=== PATIENT | male | born 1980 | race Caucasian/White ===

== ENCOUNTER 2019-03-06 05:23 | Emergency (ER) | payer MEDICAID, OTHER ==
[~2019-03-06] VITALS: Ht 185.4 cm; Wt 90.7 kg
[2019-03-06] MEDS ORDERED: pantoprazole 40 MG vial IV ONE (05:35)
[2019-03-06] MEDS ORDERED: ondansetron/PF 4mg/2ml inj IV ONE ×2 (05:35→07:25)
[2019-03-06] MEDS ORDERED: famotidine/PF 10 mg/ml inj IV ONE (05:35)
[2019-03-06] MEDS ORDERED: normal saline 1000ML IV soln IVB ONE (05:35)
[2019-03-06 06:18] LABS: EOSINOPHILS % (AUTO) 0.9 % (0-6); HEMATOCRIT 34.7 % (42.0-52.0); HEMOGLOBIN 12.3 g/dl (14.0-17.9); LYMPHOCYTES # (AUTO) 1.6 X10'3 (1.1-4.8); LYMPHOCYTES % (AUTO) 36.3 % (21-51); MEAN CORPUSCULAR HEMOGLOBIN 35.9 PG (27.0-31.0); MEAN CORPUSCULAR HGB CONC 35.4 g/dL (33.0-36.5); MEAN CORPUSCULAR VOLUME 101.5 FL (78-98); MEAN PLATELET VOLUME 8.8 FL (7.4-10.4); MONOCYTES # (AUTO) 0.4 X10'3 (0-0.9); MONOCYTES % (AUTO) 8.7 % (2-12); NEUTROPHILS # (AUTO) 2.4 X10'3 (1.8-7.7); NEUTROPHILS % (AUTO) 53.1 % (42-75); PLATELET COUNT 109 X10'3 (140-440); RED BLOOD COUNT 3.42 X10'6 (4.70-6.10); RED CELL DISTRIBUTION WIDTH 14.6 % (11.5-14.5); WHITE BLOOD COUNT 4.5 X10'3 (4.5-11.0)
[2019-03-06 06:30] LABS: ANISOCYTOSIS 1+; PLATELET ESTIMATE DECREASED; STOMATOCYTES 2+
[2019-03-06 06:38] LABS: ALANINE AMINOTRANSFERASE 231 U/L (12-78); ALBUMIN 2.8 G/DL (3.4-5.0); ALBUMIN/GLOBULIN RATIO 0.8 (1.1-1.5); ALKALINE PHOSPHATASE 198 IU/L (46-116); ASPARTATE AMINO TRANSFERASE 313 U/L (10-37); BLOOD UREA NITROGEN 21 MG/DL (7-18); BUN/CREATININE RATIO 17.4 (5.4-32.0); CALCIUM 8.6 MG/DL (8.5-10.1); CHLORIDE 99 MMOL/L (99-107); CREATININE 1.21 MG/DL (0.60-1.10); GLUCOSE 120 MG/DL (70-104); LIPASE 156 U/L (73-393); SODIUM 138 MMOL/L (135-145); TOTAL PROTEIN 6.3 G/DL (6.4-8.2); eGFR 67 ML/MIN
[2019-03-06 06:40] LABS: ANION GAP 18 (8-16); POTASSIUM 4.2 MMOL/L (3.5-5.1); TOTAL CARBON DIOXIDE 20.7 MMOL/L (24-32)
--- NOTE | 2019-03-06 07:25 | NUR ---
PT REPORTS STILL FEELING NAUSEATED, PT GIVEN WARM BLANKET, DR HOLGUIN INFORMED, RECEIVED VERBAL ORDER FR 4 MG IV ZOFRAN ONCE NOW
[2019-03-06 08:05] LABS: INR 1.2 INR; PROTHROMBIN TIME 14.7 SECONDS (9-12)
[2019-03-06] MEDS ORDERED: proCHLORperazine 10 MG/2 ml inj IV ONE (08:10)
--- NOTE | 2019-03-06 08:37 | NUR ---
LABS DRAWN AGAIN PER ORDERS, PT AMBULATORY TO BATHROOM WITH STEADY GAIT, MEDICATED PT WITH COMPAZINE IV PER ORDERS PRIOR TO GOING TO BATHROOM AND PROVIDED ICECHIPS TO PT
[2019-03-06 08:57] LABS: HEMATOCRIT 38.1 % (42.0-52.0); HEMOGLOBIN 13.3 g/dl (14.0-17.9); MEAN CORPUSCULAR HEMOGLOBIN 35.7 PG (27.0-31.0); MEAN CORPUSCULAR HGB CONC 34.8 g/dL (33.0-36.5); MEAN CORPUSCULAR VOLUME 102.4 FL (78-98); MEAN PLATELET VOLUME 9.3 FL (7.4-10.4); PLATELET COUNT 140 X10'3 (140-440); RED BLOOD COUNT 3.72 X10'6 (4.70-6.10); RED CELL DISTRIBUTION WIDTH 14.4 % (11.5-14.5)
[2019-03-06 08:58] LABS: BASOPHILS % (AUTO) 0.5 % (0-1); EOSINOPHILS % (AUTO) 0.7 % (0-6); LYMPHOCYTES # (AUTO) 2.2 X10'3 (1.1-4.8); LYMPHOCYTES % (AUTO) 43.3 % (21-51); MONOCYTES # (AUTO) 0.6 X10'3 (0-0.9); MONOCYTES % (AUTO) 11.2 % (2-12); NEUTROPHILS # (AUTO) 2.2 X10'3 (1.8-7.7); NEUTROPHILS % (AUTO) 44.3 % (42-75)
[2019-03-06] MEDS ORDERED: ONDA8TAB13 PO (09:19)
[2019-03-06] MEDS ORDERED: PANT-47 PO (09:19)
[2019-03-06 09:26] VITALS: BP 152/107
== END 2019-03-06 09:33 | disposition home or self-care (01) ==
LOC: ER 05:24
DX: K92.2 Gastrointestinal hemorrhage, unspecified (principal); F10.20 Alcohol dependence, uncomplicated; F12.90 Cannabis use, unspecified, uncomplicated; Z79.899 Other long term (current) drug therapy; Y90.9 Presence of alcohol in blood, level not specified
CPT/HCPCS: 36415; 71045; 80053; 83690; 85025; 85610; 96361; 96374; 96375; 96376; 99284; C9113; J0780; J2405; J3490; J7030

== ENCOUNTER 2019-03-24 17:33 | Emergency (ER) | payer MEDICAID, OTHER ==
[~2019-03-24] VITALS: Ht 185.4 cm; Wt 104.5 kg
[~2019-03-24 17:33] MED LIST: ONDA8TAB13 PO; PANT-47 PO
[2019-03-24 18:00] VITALS: BP 130/95
== END 2019-03-24 21:21 | disposition left against medical advice (07) ==
LOC: ER 17:34
DX: R10.9 Unspecified abdominal pain (principal); Z53.21 Procedure and treatment not carried out due to patient leaving prior to being seen by health care provider

== ENCOUNTER 2019-03-29 17:51 | Inpatient (IN) | payer MEDICAID, OTHER ==
[~2019-03-29] VITALS: Ht 185.4 cm; Wt 105.0 kg
[2019-03-29 19:03] LABS: BASOPHILS # (AUTO) 0.1 X10'3 (0-0.2); BASOPHILS % (AUTO) 0.7 % (0-1); EOSINOPHILS # (AUTO) 0.1 X10'3 (0-0.9); EOSINOPHILS % (AUTO) 0.6 % (0-6); HEMATOCRIT 29.2 % (42.0-52.0); LYMPHOCYTES # (AUTO) 2.1 X10'3 (1.1-4.8); LYMPHOCYTES % (AUTO) 12.9 % (21-51); MEAN CORPUSCULAR HGB CONC 34.3 g/dL (33.0-36.5); MEAN CORPUSCULAR VOLUME 102.2 FL (78-98); MEAN PLATELET VOLUME 7.9 FL (7.4-10.4); MONOCYTES # (AUTO) 1.2 X10'3 (0-0.9); MONOCYTES % (AUTO) 7.2 % (2-12); NEUTROPHILS # (AUTO) 12.6 X10'3 (1.8-7.7); NEUTROPHILS % (AUTO) 78.6 % (42-75); PLATELET COUNT 357 X10'3 (140-440); RED BLOOD COUNT 2.86 X10'6 (4.70-6.10)
[2019-03-29 19:14] LABS: ALANINE AMINOTRANSFERASE 137 U/L (12-78); ALBUMIN 2.2 G/DL (3.4-5.0); ALKALINE PHOSPHATASE 348 IU/L (46-116); ANION GAP 10 (8-16); ASPARTATE AMINO TRANSFERASE 175 U/L (10-37); BILIRUBIN,TOTAL 7.6 MG/DL (0.1-1.0); BLOOD UREA NITROGEN 2 MG/DL (7-18); BUN/CREATININE RATIO 2.2 (5.4-32.0); CALCIUM 8.6 MG/DL (8.5-10.1); CHLORIDE 96 MMOL/L (99-107); GLUCOSE 113 MG/DL (70-104); LIPASE 408 U/L (73-393); SODIUM 138 MMOL/L (135-145); eGFR > 90 ML/MIN
[2019-03-29 19:17] LABS: ALBUMIN/GLOBULIN RATIO 0.5 (1.1-1.5); TOTAL PROTEIN 6.8 G/DL (6.4-8.2)
[2019-03-29 19:30] LABS: NUCLEATED RED BLOOD CELLS 1 /100WBC (0-0); PLATELET ESTIMATE NORMAL; TOTAL CELLS COUNTED 100
[2019-03-29 19:31] LABS: TOXIC GRANULATION 1+; TOXIC VACUOLATION FEW
[2019-03-29] MEDS ORDERED: potassium Cl 20 mEq SR tablet PO STA (19:46)
[2019-03-29] MEDS ORDERED: normal saline 1000ML IV soln IVB ONE (19:50)
[2019-03-29] MEDS ORDERED: PANT20TA3 PO (21:41)
[2019-03-29 22:52] LABS: CLARITY,URINE CLEAR (Clear); GLUCOSE, URINE NEGATIVE (Neg); LEUKOCYTE ESTERASE ,URINE NEGATIVE (Neg); OCCULT BLOOD,URINE TRACE-LYSED (Neg)
[2019-03-29 22:55] LABS: COLOR,URINE ORANGE (Yellow); UA COLLECTION TYPE URINAL
[2019-03-29 23:01] LABS: BACTERIA,URINE FEW /HPF (Neg); RBC,URINE NONE SEEN /HPF (0-2); SQUAMOUS EPITHELIAL CELL,UR FEW /LPF (FEW); WBC,URINE 0-4 /HPF (0-4)
[2019-03-30] MEDS ORDERED: ondansetron/PF 4mg/2ml inj IV ONE (00:20)
[2019-03-30] MEDS ORDERED: morphine 4 MG/ML inj SYRINge IV ONE ×2 (00:20→01:55)
[2019-03-30 01:04] LABS: OCCULT BLOOD STOOL NEGATIVE (Neg)
--- NOTE | 2019-03-30 02:11 | NUR ---
Patient updated on POC. He complains of pain and order for morphine was obtained and given.
[2019-03-30] MEDS ORDERED: magnesium hydroxide 30ml (MOM) UD suspension PO PRN (02:15)
[2019-03-30] MEDS ORDERED: ondansetron/PF 4mg/2ml inj IV PRN (02:15)
[2019-03-30] MEDS ORDERED: mag hydrox/Alum hydrox/simeth 30ml oral suspension PO PRN (02:15)
[2019-03-30] MEDS ORDERED: acetaminophen 325mg tablet PO PRN (02:15)
[2019-03-30] MEDS ORDERED: thiamine inj. 100 MG in normal saline 100ml IV soln 100 ML IV ONE (02:20)
[2019-03-30] MEDS ORDERED: LORazepam 2 mg/ml vial IV PRN (02:20)
[2019-03-30] MEDS ORDERED: CADD PCA waste documentation MC PRN (02:25)
[2019-03-30] MEDS ORDERED: naloxone 0.4 mg/ml inj IV PRN (02:25)
[2019-03-30] MEDS: LORazepam 2 mg/ml vial IV PRN ×3 (02:54→18:35)
[2019-03-30] MEDS: potassium Cl 20mEq in NS 1,000 ML IV SCH ×2 (02:54→14:48)
[2019-03-30] MEDS ORDERED: morphine/NS 5 mg/ml CADD 50 ML IV SCH (03:00)
--- NOTE | 2019-03-30 03:45 | NUR ---
Received report from Cameron VILLATORO pt arrived via W/C ambulated to bed, on RA, in no apparent distress, call light and items of freq use within reach.
[2019-03-30 03:50] VITALS: BP 146/89
[2019-03-30] MEDS: HYDROmorphone/NS 1 mg/ml CADD 50 ML IV SCH ×11 (04:02→23:00)
--- NOTE | 2019-03-30 06:25 | NUR ---
Patient in room [facility]. I have received report from IRVING Adkins and had the opportunity to ask questions and assume patient care.
--- NOTE | 2019-03-30 06:25 | NUR ---
Gave report to Tiffany VILLATORO pt is resting on RA in no apparent distress, call light and items of freq use within reach.
[2019-03-30 06:26] LABS: LIPASE 342 U/L (73-393)
[2019-03-30 06:54] VITALS: BP 112/68
[2019-03-30] MEDS ORDERED: folic acid 1mg/0.2ml inj IV SCH (08:10)
[2019-03-30] MEDS ORDERED: thiamine 100mg/ml 2ml inj. IV SCH (08:10)
[2019-03-30 08:43] LABS: BASOPHILS # (AUTO) 0.1 X10'3 (0-0.2); BASOPHILS % (AUTO) 0.9 % (0-1); EOSINOPHILS # (AUTO) 0.1 X10'3 (0-0.9); HEMATOCRIT 26.8 % (42.0-52.0); HEMOGLOBIN 8.9 g/dl (14.0-17.9); LYMPHOCYTES # (AUTO) 2.2 X10'3 (1.1-4.8); LYMPHOCYTES % (AUTO) 18.2 % (21-51); MEAN CORPUSCULAR HEMOGLOBIN 34.5 PG (27.0-31.0); MEAN CORPUSCULAR HGB CONC 33.2 g/dL (33.0-36.5); MEAN PLATELET VOLUME 8.5 FL (7.4-10.4); MONOCYTES # (AUTO) 1.1 X10'3 (0-0.9); MONOCYTES % (AUTO) 9.3 % (2-12); NEUTROPHILS # (AUTO) 8.5 X10'3 (1.8-7.7); NEUTROPHILS % (AUTO) 70.6 % (42-75); PLATELET COUNT 306 X10'3 (140-440); RED BLOOD COUNT 2.57 X10'6 (4.70-6.10); RED CELL DISTRIBUTION WIDTH 15.7 % (11.5-14.5); WHITE BLOOD COUNT 12.1 X10'3 (4.5-11.0)
[2019-03-30 08:46] LABS: ALANINE AMINOTRANSFERASE 110 U/L (12-78); ALBUMIN 1.9 G/DL (3.4-5.0); ALBUMIN/GLOBULIN RATIO 0.5 (1.1-1.5); ALKALINE PHOSPHATASE 287 IU/L (46-116); ANION GAP 10 (8-16); ASPARTATE AMINO TRANSFERASE 131 U/L (10-37); BILIRUBIN,TOTAL 6.4 MG/DL (0.1-1.0); BLOOD UREA NITROGEN 4 MG/DL (7-18); BUN/CREATININE RATIO 4.3 (5.4-32.0); CHLORIDE 102 MMOL/L (99-107); CREATININE 0.93 MG/DL (0.60-1.10); GLUCOSE 92 MG/DL (70-104); POTASSIUM 3.5 MMOL/L (3.5-5.1); SODIUM 140 MMOL/L (135-145); TOTAL CARBON DIOXIDE 28.1 MMOL/L (24-32); TOTAL PROTEIN 5.8 G/DL (6.4-8.2); eGFR > 90 ML/MIN
[2019-03-30] MEDS: pantoprazole 40 MG vial IV SCH (08:59)
[2019-03-30 09:24] LABS: NUCLEATED RED BLOOD CELLS 1 /100WBC (0-0); PLATELET ESTIMATE NORMAL; TOTAL CELLS COUNTED 100
[2019-03-30] MEDS: THIAMINE IV SCH (09:44)
[2019-03-30] MEDS: FOLIC ACID IV SCH (09:44)
[2019-03-30] MEDS: NORMAL SALINE IV SCH (09:44)
[2019-03-30] MEDS ORDERED: iohexol 300mg/ml 100ml inj. ONE (09:46)
--- NOTE | 2019-03-30 10:29 | NUR ---
Malnutrition consult: Pt reports 2-13 lb wt loss with decreased appetite per malnutrition risk screening with RN. Patient with scaled wt of 90.7 kg 03/06/19, current documented wt is 105 kg however is pt stated. Pt currently NPO and receiving banana bag for EtOH abuse. Pending H&P, pt appears well nourished per ED report. No significant edema or decrease in muscle strength. Pt currently does not meet criteria for malnutrition. Will continue to follow. Addendum: 03/30/19 at [address] Amended: Links added.
[2019-03-30 11:20] VITALS: BP 134/87
[2019-03-30 18:00] VITALS: BP 129/74
--- NOTE | 2019-03-30 18:15 | NUR ---
Patient in room [facility]. I have received report from IRVING Merritt and had the opportunity to ask questions and assume patient care.
--- NOTE | 2019-03-30 18:26 | NUR ---
Problems reprioritized. Patient report given, questions answered & plan of care reviewed with IRVING Quevedo.
[2019-03-31] VITALS: BP 118/80
[2019-03-31] MEDS: potassium Cl 20mEq in NS 1,000 ML IV SCH ×2 (00:10→12:49)
[2019-03-31] MEDS: HYDROmorphone/NS 1 mg/ml CADD 50 ML IV SCH ×5 (00:57→09:00)
[2019-03-31] MEDS: LORazepam 2 mg/ml vial IV PRN ×3 (02:20→13:47)
[2019-03-31 05:47] LABS: BASOPHILS # (AUTO) 0.1 X10'3 (0-0.2); BASOPHILS % (AUTO) 0.6 % (0-1); EOSINOPHILS # (AUTO) 0.2 X10'3 (0-0.9); EOSINOPHILS % (AUTO) 1.5 % (0-6); HEMATOCRIT 24.7 % (42.0-52.0); HEMOGLOBIN 8.5 g/dl (14.0-17.9); LYMPHOCYTES # (AUTO) 2.1 X10'3 (1.1-4.8); LYMPHOCYTES % (AUTO) 17.3 % (21-51); MEAN CORPUSCULAR HEMOGLOBIN 35.6 PG (27.0-31.0); MEAN CORPUSCULAR HGB CONC 34.4 g/dL (33.0-36.5); MEAN CORPUSCULAR VOLUME 103.4 FL (78-98); MEAN PLATELET VOLUME 7.9 FL (7.4-10.4); MONOCYTES # (AUTO) 1.1 X10'3 (0-0.9); MONOCYTES % (AUTO) 9.3 % (2-12); NEUTROPHILS # (AUTO) 8.8 X10'3 (1.8-7.7); NEUTROPHILS % (AUTO) 71.3 % (42-75); PLATELET COUNT 295 X10'3 (140-440); RED BLOOD COUNT 2.39 X10'6 (4.70-6.10); WHITE BLOOD COUNT 12.3 X10'3 (4.5-11.0)
[2019-03-31 05:55] LABS: ALANINE AMINOTRANSFERASE 90 U/L (12-78); ALBUMIN 1.9 G/DL (3.4-5.0); ALBUMIN/GLOBULIN RATIO 0.5 (1.1-1.5); ALKALINE PHOSPHATASE 252 IU/L (46-116); ANION GAP 8 (8-16); ASPARTATE AMINO TRANSFERASE 90 U/L (10-37); BILIRUBIN,TOTAL 5.8 MG/DL (0.1-1.0); BLOOD UREA NITROGEN 5 MG/DL (7-18); BUN/CREATININE RATIO 5.8 (5.4-32.0); CALCIUM 8.2 MG/DL (8.5-10.1); CHLORIDE 102 MMOL/L (99-107); CREATININE 0.86 MG/DL (0.60-1.10); GLUCOSE 88 MG/DL (70-104); LIPASE 306 U/L (73-393); POTASSIUM 3.6 MMOL/L (3.5-5.1); SODIUM 138 MMOL/L (135-145); TOTAL CARBON DIOXIDE 27.7 MMOL/L (24-32); TOTAL PROTEIN 5.7 G/DL (6.4-8.2); eGFR > 90 ML/MIN
--- NOTE | 2019-03-31 06:31 | NUR ---
Problems reprioritized. Patient report given, questions answered & plan of care reviewed with IRVING Rodriguez.
--- NOTE | 2019-03-31 06:43 | NUR ---
Patient in room [facility]. I have received report from IRVING Quevedo and had the opportunity to ask questions and assume patient care.
[2019-03-31 06:51] LABS: LARGE PLATELETS FEW; PLATELET ESTIMATE NORMAL; TOTAL CELLS COUNTED 100
[2019-03-31 07:25] VITALS: BP 135/86
[2019-03-31] MEDS: pantoprazole 40 MG vial IV SCH (07:33)
[2019-03-31] MEDS: NORMAL SALINE IV SCH (07:34)
[2019-03-31] MEDS: FOLIC ACID IV SCH (07:34)
[2019-03-31] MEDS: THIAMINE IV SCH (07:34)
[2019-03-31] MEDS ORDERED: oxyCODONE IR 5mg (immed. release) tablet PO PRN (09:00)
--- NOTE | 2019-03-31 10:00 | NUR ---
Pt removed IV from left hand. When asked why, pt stated 'I didn't think I needed it anymore'. I educated him that only nursing is allowed to remove IV's, and to please not remove his other one. Pt stated understanding and willingness to comply. Will continue to monitor.
[2019-03-31] MEDS ORDERED: CADD PCA waste documentation MC PRN (10:25)
[2019-03-31 11:00] VITALS: BP 128/78
--- NOTE | 2019-03-31 15:22 | NUR ---
Pt removed second PIV from right AC. I reminded the pt that he is not allowed to remove IV's himself. Pt stated 'oops, mybad'. Discharge orders and paperwork pending.
--- NOTE | 2019-03-31 15:49 | NUR ---
Pt discharged per nursing. Discharge instructions and medications reviewed. No new prescriptions written. Pt instructed to follow up with PCP in 1-2 weeks. Pt stated that he would be driving himself home. He was educated that D/T having received narcotics and ativan within the past 6 hours, he cannot drive himself home. Pt stated understanding and stated that he would take an uber home, but his phone needed to be charged. Phone corsets salesperson provided to pt, phone is currently charging. Pt instructed to let us know as soon as his uber ride is set up and we will escort him to front lobby.
== END 2019-03-31 16:15 | disposition home or self-care (01) | DRG 282 ==
LOC: ER 17:51 → ED HOLD 03-30 02:40 → EDBEDREQ 03-30 03:30 → CMPBEDREQ 03-30 03:59 → SUR 3N 03-30 04:00
PROVIDERS: ADMIT Internal Medicine; ATTEND Family Medicine
PROC: BW211ZZ Computerized Tomography (CT Scan) of Abdomen and Pelvis using Low Osmolar Contrast (ICD-10-PCS; principal; 2019-03-30)
DX: K85.20 Alcohol induced acute pancreatitis without necrosis or infection (principal); R65.11 Systemic inflammatory response syndrome (SIRS) of non-infectious origin with acute organ dysfunction; K70.10 Alcoholic hepatitis without ascites; K86.3 Pseudocyst of pancreas; K70.40 Alcoholic hepatic failure without coma; F10.239 Alcohol dependence with withdrawal, unspecified; D64.9 Anemia, unspecified; E87.6 Hypokalemia; F12.90 Cannabis use, unspecified, uncomplicated; Z63.8 Other specified problems related to primary support group
CPT/HCPCS: 36415; 74176; 74177; 80053; 81001; 82272; 82948; 83605; 83690; 85025; 87081; 96374; 99285; C9113; G0378; J1170; J2060; J2270; J2405; J3411; J3480; J3490; Q9967

== ENCOUNTER 2019-08-21 16:46 | Inpatient (IN) | payer MEDICAID, OTHER ==
[~2019-08-21] VITALS: Ht 185.4 cm; Wt 100.0 kg
[~2019-08-21 16:46] MED LIST changes: -ONDA8TAB13 PO; -PANT-47 PO; +PANT20TA3 PO
[2019-08-21] MEDS ORDERED: famotidine/PF 10 mg/ml inj IV ONE (16:55)
[2019-08-21] MEDS ORDERED: octreotide inj. 1,250 MCG in normal saline 250ml IV soln 250 ML IV ONE (16:55)
[2019-08-21] MEDS ORDERED: normal saline 1000ML IV soln IV ONE (16:55)
[2019-08-21] MEDS ORDERED: pantoprazole 40 MG vial IV ONE (16:55)
[2019-08-21 17:18] LABS: BASOPHILS # (AUTO) 0.1 X10'3 (0-0.2); BASOPHILS % (AUTO) 0.8 % (0-1); EOSINOPHILS % (AUTO) 0 % (0-6); HEMATOCRIT 29.2 % (42.0-52.0); HEMOGLOBIN 10.4 g/dl (14.0-17.9); LYMPHOCYTES % (AUTO) 10.5 % (21-51); MEAN CORPUSCULAR HEMOGLOBIN 35.5 PG (27.0-31.0); MEAN CORPUSCULAR HGB CONC 35.8 g/dL (33.0-36.5); MEAN CORPUSCULAR VOLUME 99.1 FL (78-98); MEAN PLATELET VOLUME 9.1 FL (7.4-10.4); MONOCYTES # (AUTO) 0.6 X10'3 (0-0.9); MONOCYTES % (AUTO) 6.4 % (2-12); NEUTROPHILS # (AUTO) 7.8 X10'3 (1.8-7.7); NEUTROPHILS % (AUTO) 82.3 % (42-75); PLATELET COUNT 212 X10'3 (140-440); RED BLOOD COUNT 2.94 X10'6 (4.70-6.10); RED CELL DISTRIBUTION WIDTH 14.9 % (11.5-14.5); WHITE BLOOD COUNT 9.4 X10'3 (4.5-11.0)
[2019-08-21 17:29] LABS: PARTIAL THROMBOPLASTIN TIME 21 SECONDS (22-32)
[2019-08-21 17:31] LABS: ALANINE AMINOTRANSFERASE 137 U/L (12-78); ALBUMIN 3.4 G/DL (3.4-5.0); ALBUMIN/GLOBULIN RATIO 1.1 (1.1-1.5); ALKALINE PHOSPHATASE 95 IU/L (46-116); ANION GAP 15 (8-16); ASPARTATE AMINO TRANSFERASE 177 U/L (10-37); BILIRUBIN,TOTAL 1.7 MG/DL (0.1-1.0); BLOOD UREA NITROGEN 33 MG/DL (7-18); BUN/CREATININE RATIO 21.4 (5.4-32.0); CALCIUM 9.9 MG/DL (8.5-10.1); CHLORIDE 82 MMOL/L (99-107); CREATININE 1.54 MG/DL (0.60-1.10); GLUCOSE 215 MG/DL (70-104); POTASSIUM 3.1 MMOL/L (3.5-5.1); SODIUM 126 MMOL/L (135-145); TOTAL CARBON DIOXIDE 28.9 MMOL/L (24-32); TOTAL PROTEIN 6.6 G/DL (6.4-8.2); eGFR 51 ML/MIN
[2019-08-21] MEDS ORDERED: potassium Cl 20 mEq SR tablet PO STA (17:46)
[2019-08-21] MEDS ORDERED: magnesium hydroxide 30ml (MOM) UD suspension PO PRN (19:40)
[2019-08-21] MEDS ORDERED: mag hydrox/Alum hydrox/simeth 30ml oral suspension PO PRN (19:40)
[2019-08-21] MEDS ORDERED: potassium CL 10mEq/100ml bag 100 ML IV PRN ×2 (19:40)
[2019-08-21] MEDS ORDERED: acetaminophen 325mg tablet PO PRN ×2 (19:40)
[2019-08-21] MEDS ORDERED: morphine 2 MG/ML inj. syringe IV PRN (19:40)
[2019-08-21] MEDS ORDERED: potassium Cl 20 mEq SR tablet PO PRN (19:40)
[2019-08-21] MEDS ORDERED: magnesium Cl slow-release 64mg tablet PO PRN (19:40)
[2019-08-21] MEDS ORDERED: magnesium 2GM in 50ml NS 50 ML IV PRN (19:40)
[2019-08-21] MEDS ORDERED: magnesium 4gm in 100ml NS 100 ML IV PRN (19:40)
[2019-08-21 19:50] LABS: CLARITY,URINE SLIGHTLY CLOUDY (Clear); COLOR,URINE AMBER (Yellow); GLUCOSE, URINE NEGATIVE (Neg); KETONES,URINE TRACE mg/dl (Neg); LEUKOCYTE ESTERASE ,URINE NEGATIVE (Neg); NITRITES, URINE NEGATIVE (Neg); OCCULT BLOOD,URINE NEGATIVE (Neg); PROTEIN,URINE 100 mg/dl (Neg); UA COLLECTION TYPE CLN CATCH MIDSTREAM
[2019-08-21] MEDS: K and/or MAG REPLACEMENT MC SCH (20:00)
[2019-08-21 20:01] LABS: RBC,URINE NONE SEEN /HPF (0-2); WBC,URINE 0-4 /HPF (0-4)
[2019-08-21 20:02] LABS: AMORPHOUS URATES 1+; BACTERIA,URINE NONE SEEN /HPF (Neg); HYALINE CASTS >30 /LPF (NEGATIVE); MUCUS STRANDS MANY /LPF (Neg); SQUAMOUS EPITHELIAL CELL,UR FEW /LPF (FEW)
[2019-08-21] MEDS ORDERED: POTASSIUM BICARB 20meq eff tab 20 MEQ TABLET.EFF PO ONE (20:15)
[2019-08-21] MEDS ORDERED: ondansetron/PF 4mg/2ml inj IV ONE (20:20)
[2019-08-21 20:55] LABS: GASTRIC OCCULT BLOOD NEGATIVE (Neg)
[2019-08-21 20:57] LABS: OCCULT BLOOD STOOL POSITIVE (Neg)
[2019-08-21] MEDS ORDERED: PANT20TA3 PO (21:15)
[2019-08-21] MEDS: octreotide inj. 1,250 MCG in normal saline 250ml IV soln 243.75 ML IV SCH (22:05)
[2019-08-22] VITALS (10 sets, daily range): BP systolic 86–128; BP diastolic 50–80
[2019-08-22] MEDS: ondansetron/PF 4mg/2ml inj IV PRN ×2 (00:35→09:42)
[2019-08-22] MEDS: morphine 2 MG/ML inj. syringe IV PRN ×4 (00:36→21:31)
[2019-08-22] MEDS: pantoprazole 40MG/NS 100ML BAG 100 ML IV SCH ×5 (00:55→17:16)
[2019-08-22] MEDS ORDERED: haloperidol 5mg tablet PO PRN (02:20)
[2019-08-22] MEDS ORDERED: haloperidol lactate 5mg/ml inj IM PRN (02:20)
[2019-08-22] MEDS ORDERED: LORazepam 2 mg/ml vial IV PRN (02:20)
[2019-08-22] MEDS ORDERED: thiamine 100mg/ml 2ml inj. IV ONE (02:20)
[2019-08-22] MEDS ORDERED: dextrose 50%-water 50ml dispensing syringe IV PRN (02:20)
[2019-08-22] MEDS: HYDROcodone/acetaminophen 5mg/325mg tablet PO PRN ×2 (02:51→16:32)
[2019-08-22] MEDS: LORazepam 1 MG tablet PO PRN ×4 (02:52→21:30)
[2019-08-22] MEDS: potassium Cl 20 mEq SR tablet PO PRN (02:52)
--- NOTE | 2019-08-22 02:56 | NUR ---
REC'D REPORT FROM IRVING LEROY. IN ED. PT IS UP TO THE FLOOR AT 0145 VIA GURNEY AND ONE ATTENDANT, STAND AND PIVOT TRANSFER. TELE #7 APPLIED, VSS, CALL TO DR CULLEN FOR ETOH PROTOCOL. PT STATES THAT HE DRINKS 1/2 "BOTTLE" PER DAY, CONSERVATIVELY. PT WAS AT WORK WHEN HE COLLAPSED. PROTONIX AND SANDOSTATIN ARE INFUSING PER ORDERS. PT STATES THAT HIS PAIN IS IN LOWER QUADRANTS OF ABD, IS 7/10 AFTER REC'ING MEDICATION. K+ ONE ADDITIONAL DOSE OF REPLACEMENT GIVEN BEFORE AM LABS. PT IS NPO FOR ENDOSCOPY IN AM. NO BOUTS OF N/V AT THIS TIME. AWAITING THIAMINE IV FROM PHARM.
--- NOTE | 2019-08-22 04:44 | NUR ---
CLARIFIED WITH PHARMACIST FOR THIAMINE INJ. 1 MG IV. ADMIN STRAIGHT IV PUSH.
[2019-08-22 06:19] LABS: ALBUMIN 2.7 G/DL (3.4-5.0); ANION GAP 5 (8-16); BLOOD UREA NITROGEN 21 MG/DL (7-18); CALCIUM 8.2 MG/DL (8.5-10.1); CHLORIDE 94 MMOL/L (99-107); CREATININE 1.31 MG/DL (0.60-1.10); GLUCOSE 178 MG/DL (70-104); MAGNESIUM 2.1 MG/DL (1.5-2.4); POTASSIUM 3.6 MMOL/L (3.5-5.1); SODIUM 133 MMOL/L (135-145); eGFR 61 ML/MIN
--- NOTE | 2019-08-22 06:19 | NUR ---
REPORT GIVEN TO IRVING CHUA .
[2019-08-22 07:00] LABS: BASOPHILS % (AUTO) 0.6 % (0-1); EOSINOPHILS % (AUTO) 0.3 % (0-6); HEMATOCRIT 24.2 % (42.0-52.0); HEMOGLOBIN 8.6 g/dl (14.0-17.9); LYMPHOCYTES # (AUTO) 1.3 X10'3 (1.1-4.8); LYMPHOCYTES % (AUTO) 26.5 % (21-51); MEAN CORPUSCULAR HEMOGLOBIN 35.8 PG (27.0-31.0); MEAN CORPUSCULAR HGB CONC 35.6 g/dL (33.0-36.5); MEAN CORPUSCULAR VOLUME 100.6 FL (78-98); MEAN PLATELET VOLUME 8.8 FL (7.4-10.4); MONOCYTES # (AUTO) 0.6 X10'3 (0-0.9); MONOCYTES % (AUTO) 11.3 % (2-12); NEUTROPHILS % (AUTO) 61.3 % (42-75); PLATELET COUNT 145 X10'3 (140-440); RED BLOOD COUNT 2.41 X10'6 (4.70-6.10); RED CELL DISTRIBUTION WIDTH 15.1 % (11.5-14.5); WHITE BLOOD COUNT 4.9 X10'3 (4.5-11.0)
[2019-08-22] MEDS ORDERED: MVI, adult No.4 with vit. K 10 ML in dextrose 5% water 500ml 500 ML IV SCH ×2 (08:00)
[2019-08-22] MEDS: K and/or MAG REPLACEMENT MC SCH ×2 (08:00→20:00)
[2019-08-22] MEDS ORDERED: NO HOME MEDS (09:29)
[2019-08-22] MEDS ORDERED: FLU VACC QS2019-20 36MOS UP/PF 60 MCG/0.5 ML SYRINGE IMVAC ONE (10:00)
[2019-08-22] MEDS ORDERED: pneumococcal 23-VAL P-sac vacc 25 mcg/0.5ml vial IMVAC ONE (10:00)
[2019-08-22] MEDS ORDERED: MIDAZolam 5mg/5ml vial ONE (14:57)
[2019-08-22] MEDS ORDERED: LIDOcaine Viscous 15ml cup ONE (14:57)
[2019-08-22] MEDS ORDERED: fentaNYL/PF 50MCG/1 ML 2ML syringe ONE (14:57)
--- NOTE | 2019-08-22 18:33 | NUR ---
RECEIVED REPORT FROM HARSHIL VILLATORO AND ASSUMED PATIENT CARE
[2019-08-22] MEDS ORDERED: folic acid inj. 2 MG, thiamine inj. 100 MG in normal saline 100ml IV soln 100 ML IV SCH (21:00)
[2019-08-22] MEDS: pantoprazole 40mg Tablet.DR PO SCH (22:11)
[2019-08-23] MEDS: octreotide inj. 1,250 MCG in normal saline 250ml IV soln 243.75 ML IV SCH (00:09)
[2019-08-23] MEDS: LORazepam 1 MG tablet PO PRN ×3 (00:14→11:12)
[2019-08-23 06:49] LABS: ALBUMIN 2.5 G/DL (3.4-5.0); ANION GAP 5 (8-16); BLOOD UREA NITROGEN 7 MG/DL (7-18); BUN/CREATININE RATIO 7.1 (5.4-32.0); CALCIUM 7.3 MG/DL (8.5-10.1); CHLORIDE 104 MMOL/L (99-107); CREATININE 0.99 MG/DL (0.60-1.10); GLUCOSE 146 MG/DL (70-104); MAGNESIUM 2.5 MG/DL (1.5-2.4); POTASSIUM 3.4 MMOL/L (3.5-5.1); SODIUM 141 MMOL/L (135-145); TOTAL CARBON DIOXIDE 32.5 MMOL/L (24-32); eGFR 85 ML/MIN
[2019-08-23 06:56] VITALS: BP 124/81
[2019-08-23] MEDS: potassium Cl 20 mEq SR tablet PO PRN (07:35)
[2019-08-23] MEDS: pantoprazole 40mg Tablet.DR PO SCH (07:35)
[2019-08-23] MEDS ORDERED: multivitamins, therapeutics tablet PO SCH (08:00)
[2019-08-23] MEDS ORDERED: thiamine 100mg tablet PO SCH (08:00)
[2019-08-23] MEDS ORDERED: folic acid 1mg tablet PO SCH (08:00)
[2019-08-23 08:26] LABS: EOSINOPHILS # (AUTO) 0.1 X10'3 (0-0.9); EOSINOPHILS % (AUTO) 1.9 % (0-6); HEMATOCRIT 22.6 % (42.0-52.0); HEMOGLOBIN 7.9 g/dl (14.0-17.9); LYMPHOCYTES % (AUTO) 34.9 % (21-51); MEAN CORPUSCULAR HGB CONC 34.8 g/dL (33.0-36.5); MEAN CORPUSCULAR VOLUME 103.3 FL (78-98); MEAN PLATELET VOLUME 8.3 FL (7.4-10.4); MONOCYTES # (AUTO) 0.3 X10'3 (0-0.9); MONOCYTES % (AUTO) 10.6 % (2-12); NEUTROPHILS # (AUTO) 1.4 X10'3 (1.8-7.7); NEUTROPHILS % (AUTO) 51.6 % (42-75); PLATELET COUNT 140 X10'3 (140-440); RED BLOOD COUNT 2.18 X10'6 (4.70-6.10); RED CELL DISTRIBUTION WIDTH 15.5 % (11.5-14.5); WHITE BLOOD COUNT 2.7 X10'3 (4.5-11.0)
[2019-08-23] MEDS: HYDROcodone/acetaminophen 5mg/325mg tablet PO PRN (09:14)
[2019-08-23] MEDS: K and/or MAG REPLACEMENT MC SCH (09:44)
[2019-08-23 10:03] LABS: HEMATOCRIT 25.8 % (42.0-52.0); MEAN CORPUSCULAR HGB CONC 34.9 g/dL (33.0-36.5); MEAN CORPUSCULAR VOLUME 103.2 FL (78-98); MEAN PLATELET VOLUME 7.9 FL (7.4-10.4); PLATELET COUNT 186 X10'3 (140-440); RED CELL DISTRIBUTION WIDTH 14.8 % (11.5-14.5); WHITE BLOOD COUNT 3.4 X10'3 (4.5-11.0)
[2019-08-23 10:16] LABS: MONOCYTES % (MANUAL) 8 % (2-12); NEUTROPHILS % (MANUAL) 56 % (42-75); NUCLEATED RED BLOOD CELLS 1 /100WBC (0-0); PLATELET ESTIMATE NORMAL; TOTAL CELLS COUNTED 100
[2019-08-23 10:17] LABS: POLYCHROMASIA 1+
[2019-08-23] MEDS ORDERED: PANT-47 PO (10:33)
[2019-08-23] MEDS ORDERED: FOLI0.4T2 PO (10:33)
[2019-08-23] MEDS ORDERED: THIA100T70 PO (10:33)
== END 2019-08-23 11:50 | disposition home or self-care (01) | DRG 377 ==
LOC: ER 16:46 → ED HOLD 20:00 → ORTHO 4S 08-22 01:40
PROVIDERS: ADMIT Hospitalist; ATTEND Family Medicine
PROC: 0DB98ZX Excision of Duodenum, Via Natural or Artificial Opening Endoscopic, Diagnostic (ICD-10-PCS; principal; 2019-08-22)
PROC: 0DB88ZX Excision of Small Intestine, Via Natural or Artificial Opening Endoscopic, Diagnostic (ICD-10-PCS; 2019-08-22)
PROC: 0DB68ZX Excision of Stomach, Via Natural or Artificial Opening Endoscopic, Diagnostic (ICD-10-PCS; 2019-08-22)
PROC: 0DB58ZX Excision of Esophagus, Via Natural or Artificial Opening Endoscopic, Diagnostic (ICD-10-PCS; 2019-08-22)
DX: K29.21 Alcoholic gastritis with bleeding (principal); N17.0 Acute kidney failure with tubular necrosis; D62 Acute posthemorrhagic anemia; E87.6 Hypokalemia; F10.20 Alcohol dependence, uncomplicated; N18.9 Chronic kidney disease, unspecified; K42.9 Umbilical hernia without obstruction or gangrene; F12.90 Cannabis use, unspecified, uncomplicated; R73.9 Hyperglycemia, unspecified; R55 Syncope and collapse; K44.9 Diaphragmatic hernia without obstruction or gangrene; K21.0 Gastro-esophageal reflux disease with esophagitis; K31.89 Other diseases of stomach and duodenum; Z71.41 Alcohol abuse counseling and surveillance of alcoholic
CPT/HCPCS: 36415; 43239; 71045; 80048; 80053; 81001; 82140; 82271; 82272; 82948; 83036; 83735; 85025; 85027; 85610; 85730; 86885; 86900; 86901; 87081; 93005; 96365; 96375; 99152; 99285; A4620; C9113; G0378; J2250; J2270; J2354; J2405; J3010; J3411; J3490; J7030; J7040; J7050; J7060; Q2037

== ENCOUNTER 2019-09-11 17:04 | Emergency (ER) | payer OTHER ==
[~2019-09-11] VITALS: Ht 185.4 cm; Wt 96.6 kg
[~2019-09-11 17:04] MED LIST changes: +FOLI0.4T2 PO; +PANT-47 PO; -PANT20TA3 PO; +THIA100T70 PO
[2019-09-11 17:44] LABS: BASOPHILS % (AUTO) 0.4 % (0-1); EOSINOPHILS % (AUTO) 0.4 % (0-6); LYMPHOCYTES # (AUTO) 0.9 X10'3 (1.1-4.8); LYMPHOCYTES % (AUTO) 9.8 % (21-51); MEAN CORPUSCULAR HGB CONC 34.3 g/dL (33.0-36.5); MEAN CORPUSCULAR VOLUME 99.3 FL (78-98); MEAN PLATELET VOLUME 7.5 FL (7.4-10.4); MONOCYTES # (AUTO) 0.5 X10'3 (0-0.9); NEUTROPHILS # (AUTO) 7.8 X10'3 (1.8-7.7); NEUTROPHILS % (AUTO) 84.4 % (42-75); PLATELET COUNT 303 X10'3 (140-440); RED BLOOD COUNT 4.12 X10'6 (4.70-6.10); RED CELL DISTRIBUTION WIDTH 15.3 % (11.5-14.5); WHITE BLOOD COUNT 9.2 X10'3 (4.5-11.0)
[2019-09-11 17:58] LABS: ALANINE AMINOTRANSFERASE 161 U/L (12-78); ALBUMIN/GLOBULIN RATIO 1.1 (1.1-1.5); ALKALINE PHOSPHATASE 140 IU/L (46-116); AMYLASE 43 U/L (25-115); ANION GAP 13 (8-16); ASPARTATE AMINO TRANSFERASE 317 U/L (10-37); BILIRUBIN,TOTAL 1.2 MG/DL (0.1-1.0); BLOOD UREA NITROGEN 7 MG/DL (7-18); BUN/CREATININE RATIO 7.5 (5.4-32.0); CALCIUM 8.9 MG/DL (8.5-10.1); CHLORIDE 102 MMOL/L (99-107); CREATININE 0.93 MG/DL (0.60-1.10); GLUCOSE 120 MG/DL (70-104); LIPASE 162 U/L (73-393); POTASSIUM 3.3 MMOL/L (3.5-5.1); SODIUM 141 MMOL/L (135-145); TOTAL CARBON DIOXIDE 26.2 MMOL/L (24-32); TOTAL PROTEIN 7.7 G/DL (6.4-8.2); eGFR > 90 ML/MIN
[2019-09-11 18:26] LABS: COLOR,URINE YELLOW (Yellow); GLUCOSE, URINE NEGATIVE (Neg); KETONES,URINE NEGATIVE (Neg); LEUKOCYTE ESTERASE ,URINE NEGATIVE (Neg); NITRITES, URINE NEGATIVE (Neg); OCCULT BLOOD,URINE NEGATIVE (Neg); PROTEIN,URINE 30 mg/dl (Neg)
[2019-09-11 18:47] LABS: UA COLLECTION TYPE VOIDED
[2019-09-11 18:48] LABS: CLARITY,URINE SLIGHTLY CLOUDY (Clear)
[2019-09-11 18:49] LABS: BACTERIA,URINE FEW /HPF (Neg); MUCUS STRANDS MODERATE /LPF (Neg); RBC,URINE NONE SEEN /HPF (0-2); SQUAMOUS EPITHELIAL CELL,UR FEW /LPF (FEW); WBC,URINE 0-4 /HPF (0-4)
[2019-09-11] MEDS ORDERED: LORazepam 2 mg/ml vial IV ONE (18:50)
[2019-09-11] MEDS ORDERED: chlordiazePOXIDE 25mg capsule PO ONE ×2 (18:50→21:55)
[2019-09-11] MEDS ORDERED: magnesium oxide 400mg tablet PO ONE ×2 (18:50→22:00)
[2019-09-11] MEDS ORDERED: magnesium 2GM in 50ml NS 50 ML IV ONE (18:50)
[2019-09-11] MEDS ORDERED: folic acid 1mg tablet PO ONE (18:50)
[2019-09-11] MEDS ORDERED: thiamine 100mg tablet PO ONE (18:50)
[2019-09-11] MEDS ORDERED: ondansetron/PF 4mg/2ml inj IV ONE (18:50)
[2019-09-11 19:10] LABS: MAGNESIUM 1.2 MG/DL (1.5-2.4)
[2019-09-11] MEDS ORDERED: CHLO25CA10 PO (21:59)
[2019-09-11] MEDS ORDERED: MAGN200T8 PO (21:59)
[2019-09-11 22:28] VITALS: BP 148/91
== END 2019-09-11 22:32 | disposition home or self-care (01) ==
LOC: ER 17:05
DX: F10.239 Alcohol dependence with withdrawal, unspecified (principal); E83.42 Hypomagnesemia; R10.9 Unspecified abdominal pain; R11.2 Nausea with vomiting, unspecified; R19.7 Diarrhea, unspecified; F12.90 Cannabis use, unspecified, uncomplicated; F11.90 Opioid use, unspecified, uncomplicated; Z79.899 Other long term (current) drug therapy; Y90.9 Presence of alcohol in blood, level not specified
CPT/HCPCS: 36415; 80053; 81001; 82150; 83690; 83735; 85025; 96365; 96366; 96375; 99284; J2060; J2405; J3475

== ENCOUNTER 2019-12-05 14:47 | Inpatient (IN) | payer MEDICAID, OTHER ==
[~2019-12-05] VITALS: Ht 185.4 cm; Wt 101.2 kg
[~2019-12-05 14:47] MED LIST changes: +CHLO25CA10 PO; -FOLI0.4T2 PO; +MAGN200T8 PO
[2019-12-05 15:52] LABS: BASOPHILS % (AUTO) 0.2 % (0-1); EOSINOPHILS % (AUTO) 0.1 % (0-6); HEMATOCRIT 42.5 % (42.0-52.0); HEMOGLOBIN 14.3 g/dl (14.0-17.9); LYMPHOCYTES # (AUTO) 0.8 X10'3 (1.1-4.8); LYMPHOCYTES % (AUTO) 7.4 % (21-51); MEAN CORPUSCULAR HEMOGLOBIN 31.5 PG (27.0-31.0); MEAN CORPUSCULAR HGB CONC 33.6 g/dL (33.0-36.5); MEAN CORPUSCULAR VOLUME 93.9 FL (78-98); MEAN PLATELET VOLUME 7.6 FL (7.4-10.4); MONOCYTES # (AUTO) 0.9 X10'3 (0-0.9); NEUTROPHILS # (AUTO) 8.6 X10'3 (1.8-7.7); NEUTROPHILS % (AUTO) 83.3 % (42-75); PLATELET COUNT 281 X10'3 (140-440); RED BLOOD COUNT 4.52 X10'6 (4.70-6.10); RED CELL DISTRIBUTION WIDTH 18.4 % (11.5-14.5); WHITE BLOOD COUNT 10.3 X10'3 (4.5-11.0)
[2019-12-05 16:03] LABS: ALANINE AMINOTRANSFERASE 74 U/L (12-78); ALBUMIN/GLOBULIN RATIO 1.1 (1.1-1.5); ALKALINE PHOSPHATASE 99 IU/L (46-116); ANION GAP 18 (8-16); ASPARTATE AMINO TRANSFERASE 87 U/L (10-37); BILIRUBIN,TOTAL 0.9 MG/DL (0.1-1.0); BLOOD UREA NITROGEN 10 MG/DL (7-18); CHLORIDE 100 MMOL/L (99-107); CREATININE 1.11 MG/DL (0.60-1.10); GLUCOSE 169 MG/DL (70-104); LIPASE 96 U/L (73-393); SODIUM 143 MMOL/L (135-145); TOTAL CARBON DIOXIDE 25.4 MMOL/L (24-32); TOTAL PROTEIN 7.7 G/DL (6.4-8.2); eGFR 74 ML/MIN
[2019-12-05] MEDS ORDERED: normal saline 1000ML IV soln IVB ONE (16:15)
[2019-12-05] MEDS ORDERED: magnesium 2GM in 50ml NS 50 ML IV ONE (16:15)
[2019-12-05] MEDS ORDERED: ondansetron/PF 4mg/2ml inj IV ONE (16:15)
[2019-12-05] MEDS ORDERED: thiamine 100mg/ml 2ml inj. IV ONE (16:15)
[2019-12-05] MEDS ORDERED: pantoprazole 40 MG vial IV ONE (16:15)
[2019-12-05] MEDS ORDERED: potassium Cl 10 mEq/100mL bag IV ONE (16:15)
[2019-12-05] MEDS ORDERED: chlordiazePOXIDE 25mg capsule PO ONE (16:15)
[2019-12-05] MEDS ORDERED: LORazepam 2 mg/ml vial IV ONE (16:15)
[2019-12-05] MEDS ORDERED: metoclopramide 5 mg/ml inj IV ONE (17:55)
[2019-12-05 18:00] LABS: CLARITY,URINE SLIGHTLY CLOUDY (Clear); COLOR,URINE YELLOW (Yellow); GLUCOSE, URINE NEGATIVE (Neg); KETONES,URINE 15 mg/dl (Neg); LEUKOCYTE ESTERASE ,URINE NEGATIVE (Neg); NITRITES, URINE NEGATIVE (Neg); OCCULT BLOOD,URINE NEGATIVE (Neg); PROTEIN,URINE NEGATIVE (Neg); UROBILINOGEN,URINE 0.2 E.U/dL (0.2-1.0)
[2019-12-05 18:03] LABS: UA COLLECTION TYPE CLN CATCH MIDSTREAM
[2019-12-05 18:22] LABS: MUCUS STRANDS FEW /LPF (Neg); SQUAMOUS EPITHELIAL CELL,UR FEW /LPF (FEW)
[2019-12-05 18:23] LABS: BACTERIA,URINE NONE SEEN /HPF (Neg); RBC,URINE 0-2 /HPF (0-2); WBC,URINE 0-4 /HPF (0-4)
[2019-12-05 18:24] LABS: AMORPHOUS PHOSPHATES 1+
[2019-12-05] MEDS ORDERED: NO HOME MEDS (19:09)
[2019-12-05] MEDS: pantoprazole 40MG/NS 100ML BAG 100 ML IV SCH ×2 (19:14→21:00)
[2019-12-05] MEDS ORDERED: ondansetron/PF 4mg/2ml inj IV PRN (19:15)
[2019-12-05] MEDS ORDERED: thiamine inj. 100 MG in normal saline 100ml IV soln 100 ML IV ONE (19:20)
[2019-12-05] MEDS ORDERED: magnesium 4gm in 100ml NS 100 ML IV PRN (19:35)
[2019-12-05] MEDS: pantoprazole 40 MG vial IV SCH (20:00)
[2019-12-05] MEDS: normal saline 1000ml 1,000 ML IV SCH (20:37)
[2019-12-05] MEDS ORDERED: LORazepam 2 mg/ml vial ONE (21:57)
[2019-12-05] MEDS: LORazepam 2 mg/ml vial IV PRN ×2 (21:59→23:27)
--- NOTE | 2019-12-05 22:06 | NUR ---
Ativan over-ridden as omnicell continues to malfunction.
[2019-12-05 23:00] VITALS: BP 160/114
[2019-12-06] VITALS (7 sets, daily range): BP systolic 140–170; BP diastolic 93–114
[2019-12-06] MEDS: potassium CL 10mEq/100ml bag 100 ML IV PRN ×3 (02:00→04:00)
[2019-12-06] MEDS: normal saline 1000ml 1,000 ML IV SCH ×3 (04:25→19:06)
[2019-12-06] MEDS: LORazepam 2 mg/ml vial IV PRN ×9 (05:28→22:50)
[2019-12-06 06:22] LABS: ALANINE AMINOTRANSFERASE 50 U/L (12-78); ALBUMIN 3.1 G/DL (3.4-5.0); ALKALINE PHOSPHATASE 81 IU/L (46-116); ANION GAP 7 (8-16); ASPARTATE AMINO TRANSFERASE 50 U/L (10-37); BILIRUBIN,TOTAL 1.4 MG/DL (0.1-1.0); BLOOD UREA NITROGEN 8 MG/DL (7-18); BUN/CREATININE RATIO 9.3 (5.4-32.0); CALCIUM 8.6 MG/DL (8.5-10.1); CHLORIDE 106 MMOL/L (99-107); CREATININE 0.86 MG/DL (0.60-1.10); GLUCOSE 97 MG/DL (70-104); MAGNESIUM 1.9 MG/DL (1.5-2.4); POTASSIUM 3.8 MMOL/L (3.5-5.1); SODIUM 142 MMOL/L (135-145); TOTAL CARBON DIOXIDE 28.6 MMOL/L (24-32); TOTAL PROTEIN 6.1 G/DL (6.4-8.2); eGFR > 90 ML/MIN
--- NOTE | 2019-12-06 06:27 | NUR ---
Problems reprioritized. Patient report given, questions answered & plan of care reviewed with SLADE. Addendum: 12/06/19 at 0627 by Mason Phipps RN Amended: Links added.
--- NOTE | 2019-12-06 06:49 | NUR ---
Patient in room [facility]. I have received report from jones VILLATORO and had the opportunity to ask questions and assume patient care.
[2019-12-06] MEDS: pantoprazole 40 MG vial IV SCH (08:17)
[2019-12-06] MEDS ORDERED: fentaNYL/PF 50MCG/1 ML 2ML syringe ONE (10:37)
[2019-12-06] MEDS ORDERED: MIDAZolam 5mg/5ml vial ONE (10:37)
[2019-12-06] MEDS ORDERED: LIDOcaine Viscous 15ml cup ONE (10:38)
[2019-12-06] MEDS: pantoprazole 40MG/NS 100ML BAG 100 ML IV SCH ×3 (12:08→22:33)
--- NOTE | 2019-12-06 18:28 | NUR ---
Patient c/o shakes and anxiety, drinks a fifth a day of hard liquor, medicated with Ativan see EMAR with effect, patient appeared comfortable, sleeping and resting during shift. went for EGD please see report in chart, commenced on clear liquid diet no reds. Up and about in room. Appears stable Report given to Jay VILLATORO
--- NOTE | 2019-12-06 18:31 | NUR ---
Patient in room [facility]. I have received report from IRVING Corado and had the opportunity to ask questions and assume patient care.
[2019-12-06] MEDS ORDERED: HYDROcodone/acetaminophen 5mg/325mg tablet PO ONE (21:15)
--- NOTE | 2019-12-06 23:46 | NUR ---
patient was seen fully clothed at the elevator. I approached him and asked him what he was doing. He said' "I am going to get something to eat." I asked him why hs IV was out and if he was planning on leaving? He responded,Yes, and the reason was because he has "further obligations". I had him come to the nurses station to sign AMA paperwork. Hospitalist has been made aware that he has left.
[2019-12-12 11:00] LABS: OCCULT BLOOD STOOL POSITIVE (Neg)
== END 2019-12-07 00:30 | disposition left against medical advice (07) | DRG 378 ==
LOC: ER 14:48 → ED HOLD 19:13 → SUR 3N 23:10
PROVIDERS: ADMIT Internal Medicine; ATTEND Specialist
PROC: 0DB48ZX Excision of Esophagogastric Junction, Via Natural or Artificial Opening Endoscopic, Diagnostic (ICD-10-PCS; principal; 2019-12-06)
PROC: 0DB68ZX Excision of Stomach, Via Natural or Artificial Opening Endoscopic, Diagnostic (ICD-10-PCS; 2019-12-06)
DX: K29.71 Gastritis, unspecified, with bleeding (principal); F10.239 Alcohol dependence with withdrawal, unspecified; K29.81 Duodenitis with bleeding; Y90.9 Presence of alcohol in blood, level not specified; E87.6 Hypokalemia; K21.0 Gastro-esophageal reflux disease with esophagitis; K44.9 Diaphragmatic hernia without obstruction or gangrene; F12.90 Cannabis use, unspecified, uncomplicated; Z53.29 Procedure and treatment not carried out because of patient's decision for other reasons
CPT/HCPCS: 36415; 43239; 71045; 80053; 81001; 82272; 82948; 83690; 83735; 85025; 86885; 86900; 86901; 87081; 96365; 96366; 96368; 96375; 99152; 99285; A4620; C9113; G0378; J2060; J2250; J2405; J2765; J3010; J3411; J3475; J3480; J7030; J7040

== ENCOUNTER 2021-03-30 10:27 | Emergency (ER) | payer MEDICAID ==
[~2021-03-30] VITALS: Ht 182.9 cm; Wt 118.2 kg
[~2021-03-30 10:27] MED LIST changes: -CHLO25CA10 PO; -MAGN200T8 PO; +NO HOME MEDS; -PANT-47 PO; -THIA100T70 PO
[2021-03-30 11:22] VITALS: BP 144/93
== END 2021-03-30 11:33 | disposition home or self-care (01) ==
LOC: ER 10:28
DX: K42.9 Umbilical hernia without obstruction or gangrene (principal); F12.90 Cannabis use, unspecified, uncomplicated; F11.90 Opioid use, unspecified, uncomplicated; Z72.89 Other problems related to lifestyle
CPT/HCPCS: 99281

== ENCOUNTER 2021-04-08 22:08 | Emergency (ER) | payer MEDICAID ==
[~2021-04-08] VITALS: Ht 180.3 cm; Wt 101.9 kg
[2021-04-08 22:48] VITALS: BP 134/94
== END 2021-04-08 23:06 | disposition home or self-care (01) ==
LOC: ER 22:09
DX: K42.9 Umbilical hernia without obstruction or gangrene (principal); F12.10 Cannabis abuse, uncomplicated; F14.10 Cocaine abuse, uncomplicated
CPT/HCPCS: 99282

== ENCOUNTER 2021-09-10 12:07 | Day surgery (SDC) | payer MEDICAID ==
[2021-09-05 10:41] LABS: BASOPHILS % (AUTO) 0.6 % (0-1); EOSINOPHILS # (AUTO) 0.2 X10'3 (0-0.9); EOSINOPHILS % (AUTO) 3.6 % (0-6); LYMPHOCYTES # (AUTO) 2.1 X10'3 (1.1-4.8); LYMPHOCYTES % (AUTO) 33.6 % (21-51); MEAN CORPUSCULAR HEMOGLOBIN 31.6 PG (27.0-31.0); MEAN CORPUSCULAR HGB CONC 34.9 g/dL (33.0-36.5); MEAN CORPUSCULAR VOLUME 90.6 FL (78-98); MEAN PLATELET VOLUME 9.9 FL (7.4-10.4); MONOCYTES # (AUTO) 0.8 X10'3 (0-0.9); MONOCYTES % (AUTO) 12.7 % (2-12); NEUTROPHILS # (AUTO) 3.1 X10'3 (1.8-7.7); NEUTROPHILS % (AUTO) 49.5 % (42-75); PRE OP HEMATOCRIT 43.9 % (42.0-52.0); PRE OP HEMOGLOBIN 15.3 g/dL (14.0-17.9); PRE OP PLATELET COUNT 246 X10'3 (140-440); RED BLOOD COUNT 4.85 X10'6 (4.70-6.10); RED CELL DISTRIBUTION WIDTH 14.6 % (11.5-14.5)
[2021-09-05 10:56] LABS: ALBUMIN 3.7 G/DL (3.4-5.0); ALBUMIN/GLOBULIN RATIO 1.1 (1.1-1.5); ALKALINE PHOSPHATASE 79 IU/L (46-116); BLOOD UREA NITROGEN 6 MG/DL (7-18); CALCIUM 8.9 MG/DL (8.5-10.1); CHLORIDE 107 MMOL/L (99-107); CREATININE 0.86 MG/DL (0.60-1.10); PRE OP ALT 43 U/L (30-65); PRE OP ANION GAP 10 (8-16); PRE OP AST 17 U/L (10-37); PRE OP BILIRUB, TOTAL 0.4 MG/DL (0.0-1.0); PRE OP GLUCOSE 106 MG/DL (70-104); PRE OP POTASSIUM 4.1 MMOL/L (3.4-5.1); PRE OP SODIUM 143 MMOL/L (135-145); TOTAL CARBON DIOXIDE 26.3 MMOL/L (24-32); TOTAL PROTEIN 7.1 G/DL (6.4-8.2); eGFR > 90 ML/MIN
[~2021-09-10] VITALS: Ht 185.4 cm; Wt 117.9 kg
[2021-09-10] VITALS (17 sets, daily range): BP systolic 118–155; BP diastolic 72–103
[~2021-09-10 12:07] MED LIST changes: +NALT50TA PO; -NO HOME MEDS; +cefazolin/dext.iso 2gm/50ml IV ONE; +famotidine 20mg tablet PO ONE; +ringers solution, lacted 1,000 ML IV SCH
[2021-09-10] MEDS ORDERED: BUPIVAcaine 0.5% inj/PF 30 ML ONE ×2 (14:39→15:29)
[2021-09-10] MEDS ORDERED: LIDOcaine 0.5% (5mg/ml) 50ml vial ONE (14:40)
[2021-09-10] MEDS ORDERED: midazolam 1 mg/ML 2ml injection ONE (15:05)
[2021-09-10] MEDS ORDERED: acetaminophen 1,000mg/100ml IV 100 ML IV ONE (15:18)
[2021-09-10] MEDS ORDERED: fentaNYL /PF 50mcg/ml 5ml ampule ONE (15:18)
[2021-09-10] MEDS ORDERED: ceFAZolin 1000mg inj ONE (15:27)
[2021-09-10] MEDS ORDERED: dexamethasone sod phosphate 4mg/ml inj. ONE (15:27)
[2021-09-10] MEDS ORDERED: LIDOcaine 2% (20mg/ml) 5ml vial ONE (15:27)
[2021-09-10] MEDS ORDERED: propofol inj 20 ML IV ONE ×2 (15:27→16:22)
[2021-09-10] MEDS ORDERED: 0.9 % SODIUM CHLORIDE 10 ML VIAL ONE ×2 (15:28→16:05)
[2021-09-10] MEDS ORDERED: ondansetron/PF 4mg/2ml inj ONE (15:28)
[2021-09-10] MEDS ORDERED: rocuronium 10mg/ml inj IV ONE (15:28)
[2021-09-10] MEDS ORDERED: BUPIVACAINE liposomal/PF 13.3 MG/ML vial IM ONE (15:29)
[2021-09-10] MEDS ORDERED: ondansetron/PF 4mg/2ml inj IV PRN (15:40)
[2021-09-10] MEDS ORDERED: morphine 4 MG/ML inj SYRINge IV PRN (15:40)
[2021-09-10] MEDS ORDERED: labetalol 20mg/4ml (5mg/ml) syringe IV PRN (15:40)
[2021-09-10] MEDS ORDERED: morphine 2 MG/ML inj. syringe IV PRN (15:40)
[2021-09-10] MEDS ORDERED: hydrALAZINE 20mg/ml inj. IV PRN (15:40)
[2021-09-10] MEDS ORDERED: acetaminophen 1,000mg/100ml IV 100 ML IV PRN (15:40)
[2021-09-10] MEDS ORDERED: ringers solution, lacted 1,000 ML IV SCH (15:40)
[2021-09-10] MEDS ORDERED: proCHLORperazine 10 MG/2 ml inj IV PRN (15:40)
[2021-09-10] MEDS ORDERED: meperidine/PF 25mg/ml syringe IV PRN ×2 (15:40)
[2021-09-10] MEDS ORDERED: BUPIVAcaine 0.5% inj/PF 30 ml vial IJ ONE (16:04)
[2021-09-10] MEDS ORDERED: ePHEDrine 50MG/ML INJ. ONE (16:05)
[2021-09-10] MEDS ORDERED: glycopyrrolate 0.2mg/ml inj ONE (16:22)
[2021-09-10] MEDS ORDERED: neostigmine methylsulfate 1 MG/ML 10ml vial ONE (16:22)
[2021-09-10] MEDS ORDERED: oxyCODONE/APAP 5-325mg tablet PO PRN ×2 (16:45)
--- NOTE | 2021-09-10 16:48 | NUR ---
Received from OR via [facility], accompanied by Anesthesiologist DR VILLEDA and report given by Anesthesiologist. PT AWAKE, DENIES PAIN, ABDOMEN W/3 LAP SITES W/BANDAIDS COVERING CDI, SMALL GAUZE DRSG COVERING UMBILICUS CDI, ABDOMINAL BINDER IN PLACE. Addendum: 09/10/21 at 1717 by Payton Wilcox RN Amended: Links added.
[2021-09-10] MEDS: meperidine/PF 25mg/ml syringe IV PRN ×3 (16:49→18:12)
--- NOTE | 2021-09-10 19:38 | NUR ---
PAIN IMPROVED, PT STEADY AND ABLE TO AMBULATE SAFELY. D/C INSTRUCTIONS GIVEN AND GONE OVER W/PT WHO VERBALIZED UNDERSTANDING. D/C INSTRUCTIONS GIVEN AND GONE OVER W/PT WHO VERBALIZED UNDERSTANDING. PT D/CD TO HOME VIA W/C TO PRIVATE VEHICLE W/O INCIDENT. Addendum: 09/10/21 at 3 by Payton Wilcox RN Amended: Links added.
== END 2021-09-10 19:38 | disposition home or self-care (01) ==
LOC: PAS 12:07
PROVIDERS: ATTEND Surgery
DX: K43.0 Incisional hernia with obstruction, without gangrene (principal); F12.90 Cannabis use, unspecified, uncomplicated; E66.9 Obesity, unspecified; Z68.34 Body mass index [BMI] 34.0-34.9, adult; Z98.890 Other specified postprocedural states; Z79.899 Other long term (current) drug therapy; Z20.822 Contact with and (suspected) exposure to COVID-19
CPT/HCPCS: 36415; 49655; 64488; 80053; 82948; 85025; 93005; C1781; C9290; J0131; J0690; J1100; J2175; J2250; J2405; J2704; J2710; J3010; J3490; J7030; J7120; S0020; S2900; U0003; U0005; Z7506; Z7508; Z7512; A4215; A4618